=== PATIENT | female | born 1955 | race Caucasian/White ===

== ENCOUNTER → 2017-06-06 | Outpatient (CLI) | payer OTHER ==
[~2017-06-06] MED LIST: B-COINJ; CHOL400D2 PO; CYAN1TAB24; CYTO5TAB3 PO; ESTR1TAB PO; FEXO15TA PO; MEDR2.5T4 PO; [UNRECOGNIZED DRUG - CODE] PO
[2017-06-06 14:21] LABS: BACTERIA, URINE RARE /hpf; BLOOD, URINE NEG (NEG); GLUCOSE,URINE NEG (NEG); KETONE, URINE NEG (NEG); MUCUS URINE FEW /lpf (OCC); NITRITE,URINE NEG (NEG); PH, URINE 5.5 (5.0-8.5); SQUAMOUS EPITHELIAL CELL URINE <1 /hpf (0-5); URINE COLOR LIGHT-YELLOW (YELLW/STRAW)
[2017-06-06 14:29] LABS: AUTOMATED NEUTROPHIL # 3.2 TH/MM3 (1.8-7.7); BASOPHIL # 0.1 TH/MM3 (0-0.2); BASOPHIL % 0.9 % (0.0-2.0); EOSINOPHIL # 0.1 TH/MM3 (0-0.4); EOSINOPHIL % 1.2 % (0.0-4.0); HEMATOCRIT 42.4 % (35.0-46.0); HEMO FLAGS DIFF FINAL; LYMPH % 37.3 % (9.0-44.0); LYMPHOCYTE # 2.2 TH/MM3 (1.0-4.8); MEAN CELL VOLUME 92.7 FL (80.0-100.0); MEAN CORPUSCULAR HEMOGLOBIN 31.5 PG (27.0-34.0); MONO % 7.7 % (0.0-8.0); NEUT % 52.9 % (16.0-70.0); PLATELET COUNT 212 TH/MM3 (150-450); RED BLOOD COUNT 4.57 MIL/MM3 (4.00-5.30); RED CELL DISTRIBUTION WIDTH 13.1 % (11.6-17.2)
[2017-06-06 14:50] LABS: ANION GAP 7 MEQ/L (5-15); BICARBONATE 26.6 MEQ/L (21.0-32.0); BLOOD UREA NITROGEN 15 MG/DL (7-18); CHLORIDE 102 MEQ/L (98-107); GLOMERULAR FILTRATION RATE 93 ML/MIN (>89); GLUCOSE,FASTING 98 MG/DL (74-99); SODIUM (NA) 136 MEQ/L (136-145)
[2017-06-06 14:51] LABS: POTASSIUM 4.3 MEQ/L (3.5-5.1)
[2017-06-06 14:55] LABS: BHCG SCREEN QUALITATIVE LESS THAN 1 MIU/ML (0-5)
--- NOTE | 2017-06-06 16:08 | RADRPT ---
EXAM DATE/TIME: 06/06/2017 14:00 [place] COMPARISON: No previous studies available for comparison. INDICATIONS : Evaluate for pneumonia,pneumothorax and communicable diseases. Pre-op Hysterectomy. MEDICAL HISTORY : None. SURGICAL HISTORY : None. ENCOUNTER: Initial ACUITY: 1 day PAIN SCORE: 0/10 LOCATION: chest FINDINGS: PA and lateral views of the chest demonstrate a normal-sized cardiac silhouette. There is no effusion , consolidation, or pneumothorax. The bones and soft tissues demonstrate no acute abnormality. There are degenerative changes of the thoracic spine. CONCLUSION: No acute cardiopulmonary abnormality is identified. Akshat Roth MD on June 06, 2017 at 16:05 Board Certified Radiologist. This report was verified electronically.
--- NOTE | 2017-06-07 09:32 | EKG ---
Date Performed: 06/06/2017 Time Performed: 13:34:10 PTAGE: 61 years EKG: Sinus rhythm NORMAL ECG NO PREVIOUS TRACING DOCTOR: Kenyon Rock Interpretating Date/Time 06/07/2017 09:30:59
== END ==
LOC: CPRE 13:05
PROVIDERS: ATTEND Obstetrics & Gynecology
DX: Z01.811 Encounter for preprocedural respiratory examination (principal); Z01.812 Encounter for preprocedural laboratory examination; Z01.810 Encounter for preprocedural cardiovascular examination; N95.0 Postmenopausal bleeding; D25.9 Leiomyoma of uterus, unspecified; R10.2 Pelvic and perineal pain; N84.0 Polyp of corpus uteri; N39.3 Stress incontinence (female) (male); F41.9 Anxiety disorder, unspecified
CPT/HCPCS: 36415; 71020; 80048; 81001; 84703; 85025; 93005

== ENCOUNTER 2017-06-12 05:52 | Observation (INO) | payer OTHER ==
[~2017-06-12] VITALS: Ht 162.6 cm; Wt 62.9 kg
[~2017-06-12 05:52] MED LIST changes: -B-COINJ; -CHOL400D2 PO; -CYAN1TAB24; -CYTO5TAB3 PO; -ESTR1TAB PO; -FEXO15TA PO
[2017-06-12] MEDS ORDERED: SODIUM CHLORID 0.9% 500 ML IV PRN (06:15)
[2017-06-12] MEDS ORDERED: METOPROLOL TARTRATE 25 MG TAB PO PRN (06:15)
[2017-06-12] MEDS ORDERED: CHLORHEXIDINE GLUCONATE 2 % 1 PACK (2 CLOTHS) TOPICAL PRN (06:15)
[2017-06-12] MEDS ORDERED: POVIDONE IODINE 5% (ANTISEPSIS KIT) 4 APPLICATIONS EACH NARE PRN (06:15)
[2017-06-12] MEDS ORDERED: INSULIN HUMAN REGULAR 1,000 UNITS/10 ML VIAL SQ PRN (06:15)
[2017-06-12] MEDS ORDERED: CYTO5TAB3 PO (06:35)
[2017-06-12] MEDS: LACTATED RINGER'S 1000 ML IV PRN ×2 (06:35→10:31)
[2017-06-12] MEDS ORDERED: ESTR1TAB PO (06:35)
[2017-06-12] MEDS ORDERED: CHOL400D2 PO (06:35)
[2017-06-12] MEDS ORDERED: B-COINJ (06:38)
[2017-06-12] MEDS ORDERED: CYAN1TAB24 (06:38)
[2017-06-12] MEDS ORDERED: FEXO15TA PO (06:38)
[2017-06-12 06:41] VITALS: BP 164/79; PULSE 73; RESP 16; TEMP 97.9; O2SAT 100
[2017-06-12] MEDS: ceFAZolin 1,000 MG/NS 100 ML IV SCH ×6 (06:52→10:33)
[2017-06-12] MEDS ORDERED: ESTROGENS CONJUGATED VAG CREA 15 APPL/30 GM TUBE ONE (06:57)
[2017-06-12] MEDS ORDERED: MIDAZOLAM HCL 2 MG/2 ML VIAL ONE (07:22)
[2017-06-12] MEDS ORDERED: DEXAMETHASONE SOD PHOS 4 MG/ML VIAL ONE (07:22)
[2017-06-12] MEDS ORDERED: FAMOTIDINE 20 MG/2 ML VIAL ONE (07:23)
[2017-06-12] MEDS ORDERED: ACETAMINOPHEN 1000 MG/100 ML VIAL IV ONE (07:28)
[2017-06-12] MEDS ORDERED: KETOROLAC TROMETHAMINE 60 MG/2 ML (IM) VIAL IM ONE (07:54)
[2017-06-12] MEDS ORDERED: PROPOFOL 200 MG/20 ML AMP IV ONE (07:54)
[2017-06-12] MEDS ORDERED: ONDANSETRON HCL 4 MG/2 ML VIAL IV PUSH ONE (07:54)
[2017-06-12] MEDS ORDERED: NEOSTIGMINE 3 MG/3 ML SYR IV ONE (07:54)
[2017-06-12] MEDS ORDERED: NORMOSOL R INJ 1,000 ML IV ONE (07:54)
[2017-06-12] MEDS ORDERED: ceFAZolin INJ 1,000 MG VIAL IV ONE (08:29)
[2017-06-12] MEDS ORDERED: HYDROmorphone HCL PF 1 MG/ML VIAL IVP PRN (10:15)
[2017-06-12] MEDS ORDERED: ONDANSETRON HCL 4 MG/2 ML VIAL IVP PRN (10:15)
[2017-06-12] MEDS ORDERED: diphenhydrAMINE HCL 25 MG CAP PO PRN (10:15)
[2017-06-12] MEDS ORDERED: PROMETHAZINE INJ 25 MG/ML VIAL IM PRN (10:15)
[2017-06-12] MEDS ORDERED: fentaNYL CITRATE 250 MCG/5 ML AMP ONE (10:18)
[2017-06-12] MEDS ORDERED: *morphine SULFATE 8 MG/ML PERIprocedure ONLY ONE (10:18)
[2017-06-12] MEDS ORDERED: *HYDROmorphone PF 1 MG VIAL PERIprocedural Use ONLY ONE (11:33)
[2017-06-12] MEDS ORDERED: *ONDANSETRON 4 MG VIAL PERIprocedural Use ONLY ONE (12:58)
[2017-06-12 15:00] VITALS: BP 170/95; PULSE 92; RESP 18; TEMP 98; O2SAT 97
[2017-06-12] MEDS ORDERED: LACTATED RINGER'S 1000 ML INJ 1,000 ML IV SCH (15:00)
[2017-06-12 15:30] VITALS: BP 154/72
[2017-06-12] MEDS ORDERED: ZOLPIDEM TARTRATE 5 MG TAB PO PRN (16:00)
[2017-06-12] MEDS ORDERED: SODIUM CHLORIDE 0.9% FLUSH 10 ML FLUSH IV FLUSH PRN (16:00)
[2017-06-12] MEDS ORDERED: IBUPROFEN 600 MG TAB PO PRN (16:00)
[2017-06-12] MEDS ORDERED: oxyCODONE/ACETAMINOPHEN 5 MG/325 MG TAB PO PRN (16:00)
[2017-06-12 20:00] VITALS: BP 138/71; PULSE 85; RESP 18; TEMP 96.3; O2SAT 97
[2017-06-12] MEDS: DOCUSATE SODIUM 100 MG CAP PO SCH (20:08)
[2017-06-12] MEDS: oxyCODONE/ACETAMINOPHEN 5 MG/325 MG TAB PO PRN (20:08)
[2017-06-12] MEDS: SODIUM CHLORIDE 0.9% FLUSH 10 ML FLUSH IV FLUSH SCH (20:09)
[2017-06-13] VITALS: BP 144/70; PULSE 75; RESP 17; TEMP 96.4; O2SAT 96
[2017-06-13 04:00] VITALS: BP 131/61; PULSE 84; RESP 17; TEMP 98.5; O2SAT 97
[2017-06-13] MEDS ORDERED: LEVOTHYROXINE SODIUM 88 MCG TAB PO SCH (06:00)
[2017-06-13 08:00] VITALS: BP 171/92; PULSE 72; RESP 16; TEMP 97.7; O2SAT 99
[2017-06-13] MEDS: SODIUM CHLORIDE 0.9% FLUSH 10 ML FLUSH IV FLUSH SCH (08:10)
[2017-06-13] MEDS: DOCUSATE SODIUM 100 MG CAP PO SCH (08:11)
[2017-06-13] MEDS: oxyCODONE/ACETAMINOPHEN 5 MG/325 MG TAB PO PRN (08:15)
[2017-06-13] MEDS ORDERED: LIOTHYRONINE SODIUM 5 MCG TAB PO SCH (09:00)
[2017-06-13] MEDS ORDERED: LORATADINE 10 MG TAB PO SCH (09:00)
[2017-06-13 09:45] LABS: AUTOMATED NEUTROPHIL # 4.8 TH/MM3 (1.8-7.7); BASOPHIL % 0.5 % (0.0-2.0); EOSINOPHIL % 0.5 % (0.0-4.0); HEMATOCRIT 38.9 % (35.0-46.0); HEMO FLAGS DIFF FINAL; LYMPH % 24.4 % (9.0-44.0); LYMPHOCYTE # 1.8 TH/MM3 (1.0-4.8); MEAN CELL VOLUME 92.9 FL (80.0-100.0); MEAN CORPUSCULAR HEMOGLOBIN 31.4 PG (27.0-34.0); MEAN CORPUSCULAR HGB CONC 33.8 % (32.0-36.0); MONO % 9.5 % (0.0-8.0); NEUT % 65.1 % (16.0-70.0); PLATELET COUNT 212 TH/MM3 (150-450); RED BLOOD COUNT 4.19 MIL/MM3 (4.00-5.30); RED CELL DISTRIBUTION WIDTH 12.5 % (11.6-17.2); WHITE BLOOD COUNT 7.4 TH/MM3 (4.0-11.0)
[2017-06-13] MEDS ORDERED: PNEUMOCOCCAL POLYVALENT INJ 25 MCG/0.5 ML SYR IM ONE (10:00)
[2017-06-13 10:11] LABS: BICARBONATE 26.4 MEQ/L (21.0-32.0); POTASSIUM 4.1 MEQ/L (3.5-5.1)
--- NOTE | 2017-06-13 10:31 | HHI.DCPOC ---
Discharge Care Plan Diagnosis: (1) History of laparoscopy-assisted vaginal hysterectomy Your Health Problems Are: Incisions/drains Report Symptoms to Your Doctor -Temperature above 100.5 degrees -Redness, of incision or excessive or foul smelling drainage -Unusual pain or calf pain -Increased vaginal bleeding -Painful or difficulty urinating -Feelings of extreme sadness or anxiety after 2 weeks Goals to Promote Your Health * To prevent worsening of your condition and complications * To maintain your health at the optimal level Directions to Meet Your Goals Take your medications as prescribed Follow your dietary instruction Follow activity as directed Ensure plenty of rest for recovery Drink fluids for hydration Keep your appointments as scheduled Take your immunizations and boosters as scheduled If your symptoms worsen call your PCP, if no PCP go to Urgent Care Center or Emergency Room Smoking is Dangerous to Your Health. Avoid second hand smoke Call the 24-hour crisis hotline for domestic abuse at Cydney Stevenson Jun 13, 2017 10:31
--- NOTE | 2017-06-13 16:37 | HHI.PR ---
Subjective Remarks PT FEELING GOOD Objective - Vital Signs Date Time Temp Pulse Resp B/P Pulse Ox O2 Delivery O2 Flow Rate FiO2 06/13/17 08:00 97.7 72 16 99 171/92 06/12/17 14:00 Room Air 06/12/17 10:45 2 Result Diagram: 06/13/1791206/13/17912 A/P Problem List: (1) History of laparoscopy-assisted vaginal hysterectomy ICD Code: Z90.710 Assessment and Plan A/O HEART REGULAR RHYTHM LUNGS CLEAR TO AUSCULTATION ABD SOFT, NONTENDER + BS. STERI STRIPS CDI LOWER EXTREMITIES WITHOUT TENDERNESS OR SWELLING PT DOING WELL PAIN WELL MANAGED WITH ORAL PAIN MEDIATION NO FLATUS YET, TAKING STOOL SOFTENER ROUTINE POST OP CARE Discharge Planning DC HOME TODAY WITH F/U IN OFFICE 1 WEEK Attending Attestation PRESENT FOR EXAM, EXAMINED BY Cydney Dumont Jun 13, 2017 16:37
--- NOTE | 2017-06-13 16:44 | HHI.DS ---
Discharge Summary Admission Date Jun 12, 2017 at 12:51 Discharge Date: Jun 13, 2017 Admitting Diagnosis PERSISTENT POST MENOPAUSAL BLEEDING AFTER H-SCOPE D &C (1) History of laparoscopy-assisted vaginal hysterectomy Diagnosis: Principal Brief History PT HAD PERSISTENT POST MENOPAUSAL BLEEDING EVEN AFTER H-SCOPE AND D &C CBC/BMP: 06/13/17 0913 06/13/17 0913 Significant Findings Laboratory Tests Test 06/13/17 09:13 Mean Platelet Volume 6.8 FL (7.0-11.0) Monocytes (%) (Auto) 9.5 % (0.0-8.0) Random Glucose 127 MG/DL (74-106) Hospital Course LAVH/BSO ROUTINE POST OP CARE Pt Condition on Discharge: Good Discharge Disposition: Discharge Home Discharge Instructions DIET: Follow Instructions for: As Tolerated, No Restrictions Additional Diet Instructions: Drink at least 8 - 16 oz bottles of water a day Activities you can perform: Shower Only-No Bath Activities to avoid: Lifting/Bending, Sexual Activity Additional Activity Instructio: No driving until off pain medications Follow up Referrals: SATELLITE DISH TECHNICIAN - 1 Week @ [facility] Continued Medications: Cholecalciferol (Vitamin D) 400 Unit/Ml Drops Unknown Dose PO DAILY #1 BOTTLE Cyanocobalamin (B12) 1,000 Mcg Tab Estradiol (Estradiol) 1 Mg Tab 1 MG PO DAILY Estrogen Supplements #30 Ref 0 TAB Fexofenadine (Jessica Allergy) 180 Mg Tab 180 MG PO DAILY Allergy Management #30 Ref 0 TAB Levothyroxine (Tirosint) 88 Mcg Cap 2 CAP PO DAILY Thyroid #30 Ref 0 CAP Liothyronine Sodium (Cytomel) 5 Mcg Tablet 1 TAB PO DAILY Discontinued Medications: Medroxyprogesterone Acetate (Medroxyprogesterone Acetate) 2.5 Mg Tablet 1 TAB PO DAILY Cydney Stevenson Jun 13, 2017 16:44
--- NOTE | 2017-06-14 11:38 | MP ---
cc: Jesus Manuel CONNOLLY MD DATE OF SURGERY: 06/12/2017 PREOPERATIVE DIAGNOSIS 1. Persistent postmenopausal bleeding. status post D&C. 2. Fibroid uterus. POSTOPERATIVE DIAGNOSIS 1. Persistent postmenopausal bleeding. status post D&C. 2. Fibroid uterus. PROCEDURE Laparoscopic-assisted vaginal hysterectomy, bilateral salpingo-oophorectomy. ANESTHESIA General endotracheal intubation. SURGEON Jesus Manuel Connolly MD FINDINGS Examination under anesthesia, uterus was a small, freely mobile. The adnexa negative for masses. Cervix was small, nulliparous and clean. The vagina was normal. Laparoscopic exam revealed a small uterus with a possible fundal fibroid, a little irregularly shaped. Fallopian tubes were normal. The ovaries were normal. The infundibulopelvic ligament had fairly large vessels bilaterally. The posterior and anterior cul-de-sacs were normal. The liver and upper abdomen were normal. There was some scarring of the liver. COMPLICATIONS None. COUNTS Counts were correct. ESTIMATED BLOOD LOSS 50 ccs. FLUIDS Crystalloids. CONDITION The patient tolerated the procedure well and went to the recovery room in good condition. INDICATIONS FOR PROCEDURE This is a patient who had a D&C, hysteroscopic exam back in February of 2017. She continued to have bleeding and after discussing the possible alternatives, she decided to proceed with a laparoscopic-assisted vaginal hysterectomy, bilateral salpingo-oophorectomy. DESCRIPTION OF THE PROCEDURE The patient was taken to the operating room, identified by name band and verbally. She was given a general anesthetic and carefully placed in the dorsolithotomy position for vaginal laparoscopic surgery. She was prepped and draped and a Sow catheter was inserted. An examination under anesthesia was carried out with the above findings. Once this had been accomplished, a weighted speculum was placed in the vagina. The anterior lip of the cervix was grasped with a single toothed tenaculum. The Hulka clamp was placed without difficulty. The surgeon changed gloves and paid attention to the umbilical area where a small subumbilical incision was made and using the 5 mm trocar, the abdomen was entered under direct vision without difficulty. A Pneumoperitoneum was created with three liters of CO2. Inferolateral to the umbilicus bilaterally, two more 5 mm ports were placed for instrumentation under direct visualization. The entire pelvis and abdomen were carefully inspected with the above findings. The right infundibulopelvic ligament was identified and taken with the LigaSure device. This was taken down and half way down the broad ligament. This was repeated on the left side as well. The round ligament was then taken and a bladder flap was created in the usual fashion pushing the bladder out of harms way. The remainder of the broad ligament was taken down with the LigaSure device bilaterally and the uterine vessels were skeletonized. Once they had been skeletonized, the uterine vessels were taken with the LigaSure device. Hemostasis was excellent. The Cardinal ligament was then taken down with the LigaSure device staying very close to the cervix and pushing the bladder out of harm's way. At this point, all surgical pedicles were inspected and the surgeon turned his attention to the cervix. The weighted speculum was replaced into the vagina and the Hulka clamp removed. The tenaculum was replaced anteriorly and a circumferential incision was made around the cervix without difficulty. Most of the Cardinal ligament had already been taken down. With several clamps of the Tom, the specimen was freed up and pulled through the vaginal canal. At this time, the pneumoperitoneum was released and the peritoneum was then grasped in a pursestring fashion with 2-0 Vicryl and the peritoneum closed. The vagina was closed with 0 Vicryl pop-offs in interrupted fashion with excellent hemostasis. Going back up to the laparoscope then, we inspected all the pedicles and they were completely dry. We removed the pneumoperitoneum and the three 5 mm ports. The incisions were repaired with a single stitch of 4-0 Monocryl in a subcuticular manner. The patient tolerated the procedure well and went to the Recovery Room in good condition. R. MD SUSAN Rendon/UNRULY /10:18 AM /11:12 AM
== END 2017-06-13 10:51 | disposition home or self-care (01) ==
LOC: HSDC 05:52 → EDUNIT# 08:00 → HSDI 12:51 → HOCB 14:58
PROVIDERS: ADMIT Obstetrics & Gynecology; ATTEND Obstetrics & Gynecology
PROC: 0UTC7ZZ Resection of Cervix, Via Natural or Artificial Opening (ICD-10-PCS; 2017-06-12)
PROC: 0UT2FZZ Resection of Bilateral Ovaries, Via Natural or Artificial Opening With Percutaneous Endoscopic Assistance (ICD-10-PCS; 2017-06-12)
PROC: 0UT7FZZ Resection of Bilateral Fallopian Tubes, Via Natural or Artificial Opening With Percutaneous Endoscopic Assistance (ICD-10-PCS; 2017-06-12)
PROC: 0UT9FZZ Resection of Uterus, Via Natural or Artificial Opening With Percutaneous Endoscopic Assistance (ICD-10-PCS; principal; 2017-06-12 07:46)
DX: D25.9 Leiomyoma of uterus, unspecified (principal); N80.0 Endometriosis of uterus; N83.8 Other noninflammatory disorders of ovary, fallopian tube and broad ligament; N95.0 Postmenopausal bleeding; E03.9 Hypothyroidism, unspecified; Z23 Encounter for immunization
CPT/HCPCS: 00840; 58552; 80048; 85025; 86850; 86900; 86901; 88307; 90732; 96372; 96374; G0378; J0131; J0690; J1100; J1170; J1885; J2250; J2270; J2405; J2710; J3010; J7120